=== PATIENT | female | born 1945 | race Caucasian/White ===

== ENCOUNTER 2019-03-08 12:00 | Inpatient (IN) | payer BC ==
[~2019-03-08] VITALS: Ht 152.4 cm; Wt 70.8 kg
[2019-08-03] MEDS ORDERED: AMLO-307 PO (10:21)
[2019-08-03] MEDS ORDERED: ALEN70TA13 PO (10:21)
[2019-08-03] MEDS ORDERED: TRAM50TA2 PO (10:21)
[2019-08-03] MEDS ORDERED: ACET-2119 PO (11:03)
[2019-08-15] MEDS ORDERED: ASPI-611 PO (11:38)
[2019-08-15] MEDS ORDERED: CHOL50004 PO (11:38)
[2019-08-15] MEDS ORDERED: MULT-933 PO (11:38)
[2019-08-15] MEDS ORDERED: CICL90CR11 TOP (11:38)
[2019-08-16] VITALS (26 sets, daily range): BP systolic 88–163; BP diastolic 43–93
[2019-08-16] MEDS ORDERED: ringers solution, lacted 1,000 ML IV SCH ×2 (05:00→09:02)
[2019-08-16] MEDS ORDERED: vancomycin 1,500 MG in NS 500ml IV soln IV ONE (05:30)
[2019-08-16] MEDS ORDERED: famotidine 20mg tablet PO ONE (05:30)
[2019-08-16] MEDS ORDERED: cefazolin/dext.iso 2gm/100ml 100 ML IV ONE (05:30)
[2019-08-16] MEDS ORDERED: tranexamic acid inj. 700 MG in normal saline 100ml IV soln 100 ML IV ONE ×5 (05:30→13:00)
[2019-08-16] MEDS ORDERED: LIDOcaine 1% (10mg/ml) 2ml vial ONE (05:59)
[2019-08-16] MEDS ORDERED: ketorolac trometh. 30mg/ml inj. ONE (06:40)
[2019-08-16] MEDS ORDERED: ROPIVAcaine 0.5% (5mg/ml) 30ml vial ONE ×2 (06:40→07:07)
[2019-08-16 06:41] LABS: BASOPHILS # (AUTO) 0.1 X10'3 (0-0.2); BASOPHILS % (AUTO) 0.7 % (0-1); EOSINOPHILS % (AUTO) 0.4 % (0-6); HEMATOCRIT 36.4 % (35.0-45.0); HEMOGLOBIN 12.2 g/dl (12.0-16.0); LYMPHOCYTES # (AUTO) 1.3 X10'3 (1.1-4.8); LYMPHOCYTES % (AUTO) 16.2 % (21-51); MEAN CORPUSCULAR HEMOGLOBIN 28.9 PG (27.0-31.0); MEAN CORPUSCULAR HGB CONC 33.6 g/dL (33.0-36.5); MEAN CORPUSCULAR VOLUME 86.2 FL (78-98); MEAN PLATELET VOLUME 6.9 FL (7.4-10.4); NEUTROPHILS # (AUTO) 5.4 X10'3 (1.8-7.7); NEUTROPHILS % (AUTO) 69.7 % (42-75); PLATELET COUNT 213 X10'3 (140-440); RED BLOOD COUNT 4.22 X10'6 (4.20-5.60); WHITE BLOOD COUNT 7.8 X10'3 (4.5-11.0)
[2019-08-16 06:53] LABS: ALANINE AMINOTRANSFERASE 26 U/L (12-78); ALBUMIN 3.8 G/DL (3.4-5.0); ALBUMIN/GLOBULIN RATIO 1.1 (1.1-1.5); ALKALINE PHOSPHATASE 56 IU/L (46-116); ANION GAP 12 (8-16); ASPARTATE AMINO TRANSFERASE 38 U/L (10-37); BILIRUBIN,TOTAL 0.6 MG/DL (0.1-1.0); BLOOD UREA NITROGEN 14 MG/DL (7-18); BUN/CREATININE RATIO 17.1 (6.6-38.0); CALCIUM 9.2 MG/DL (8.5-10.1); CHLORIDE 101 MMOL/L (99-107); CREATININE 0.82 MG/DL (0.40-0.90); GLUCOSE 110 MG/DL (70-104); POTASSIUM 3.3 MMOL/L (3.5-5.1); SODIUM 138 MMOL/L (135-145); TOTAL CARBON DIOXIDE 24.9 MMOL/L (24-32); TOTAL PROTEIN 7.2 G/DL (6.4-8.2); eGFR 68 ML/MIN
[2019-08-16] MEDS ORDERED: fentaNYL/PF 50MCG/1 ML 2ML syringe ONE (07:05)
[2019-08-16] MEDS ORDERED: MIDAZolam 5mg/5ml vial ONE (07:05)
[2019-08-16] MEDS ORDERED: propofol inj 20 ML IV ONE (07:07)
[2019-08-16] MEDS ORDERED: sevoflurane 250ml liquid IH ONE (07:08)
[2019-08-16] MEDS ORDERED: LIDOcaine 1%/PF 5ML 10 MG/ML VIAL ONE (07:08)
[2019-08-16] MEDS ORDERED: ePHEDrine 50MG/ML INJ. ONE (08:16)
[2019-08-16] MEDS ORDERED: dexamethasone sod phosphate 4mg/ml inj. ONE (08:18)
[2019-08-16] MEDS ORDERED: ROPIVAcaine 0.2%/PF PUMP/bolus 550 ML INTERSCALE SCH (09:02)
[2019-08-16] MEDS ORDERED: ROPIVAcaine 0.2% (10 MG/5 ML) BOLUS INJECTION INTERSCALE PRN (09:05)
[2019-08-16] MEDS ORDERED: morphine 2 MG/ML inj. syringe IV PRN (09:05)
[2019-08-16] MEDS ORDERED: morphine 4 MG/ML inj SYRINge IV PRN (09:05)
[2019-08-16] MEDS ORDERED: proCHLORperazine 10 MG/2 ml inj IV PRN (09:05)
[2019-08-16] MEDS ORDERED: ondansetron/PF 4mg/2ml inj IV PRN ×2 (09:05→09:55)
[2019-08-16] MEDS ORDERED: meperidine/PF 25mg/ml syringe IV PRN ×3 (09:05)
--- NOTE | 2019-08-16 09:24 | NUR ---
Received from OR via BED, accompanied by Anesthesiologist DR OVIEDO and report given by Anesthesiologist. PT DROWSY, NO S/S OF DISTRESS OR DISCOMFORT, LEFT SHOULDER W/DRSG CDI, ICE PACK, SHOULDER WRAP, SLING. Addendum: 08/16/19 at 0946 by Kaylie Henson RN Amended: Links added. Addendum: 08/16/19 at 0947 by Kaylie Henson RN LATE NOTE: BLANKET WARMER APPLIED TO PT FOR TEMP OF 36.0
[2019-08-16] MEDS ORDERED: HYDROmorphone 1 mg/ml syringe IV PRN (09:55)
[2019-08-16] MEDS ORDERED: HYDROmorphone inj. 0.5 MG/0.5 ML DISP.SYRIN IV PRN (09:55)
[2019-08-16] MEDS ORDERED: bisacodyl 10mg suppository rectal RC PRN (09:55)
[2019-08-16] MEDS ORDERED: diphenhydrAMINE 25mg capsule PO PRN ×2 (09:55)
[2019-08-16] MEDS ORDERED: magnesium hydroxide 30ml (MOM) UD suspension PO PRN (09:55)
[2019-08-16] MEDS ORDERED: acetaminophen 325mg tablet PO PRN (09:55)
[2019-08-16] MEDS ORDERED: oxyCODONE IR 5mg (immed. release) tablet PO PRN ×2 (09:55)
[2019-08-16] MEDS ORDERED: non-formulary drug (Alendronate Sodium 1 TAB) PO SCH (10:05)
[2019-08-16] MEDS ORDERED: traMADol 50MG tablet PO PRN (10:05)
--- NOTE | 2019-08-16 12:04 | NUR ---
Report called to receiving nurse. Transferred via BED BY KAMILA 2 BAGS OF Belongings SENT W/PT TO ROOM 3019, CALLED CHARGE NURSE TO NOTIFY OF PTS ARRIVAL. Special Issues communicated to receiving nurse. YES. Addendum: 08/16/19 at 1218 by Kaylie Henson RN Amended: Links added.
[2019-08-16] MEDS: acetaminophen 325mg tablet PO SCH ×3 (16:05→23:08)
[2019-08-16] MEDS: ceFAZolin 1GM/D5W- ADD-VANTAGE 50 ML IV SCH ×2 (16:06→23:00)
[2019-08-16] MEDS: potassium cl 20mEq in 1/2 NS 1,000 ML IV SCH (16:29)
--- NOTE | 2019-08-16 18:05 | NUR ---
Patient in room PCU 3019. I have received report from DEMETRA Walker and had the opportunity to ask questions and assume patient care.
[2019-08-16] MEDS ORDERED: vancomycin/NS 1 GM ADD-VANTAGE 250 ML IV SCH (20:00)
[2019-08-16] MEDS ORDERED: sennosides 8.6mg tablet PO SCH (21:00)
[2019-08-17 02:00] VITALS: BP 116/48
[2019-08-17] MEDS: potassium cl 20mEq in 1/2 NS 1,000 ML IV SCH ×2 (03:37→09:53)
[2019-08-17 05:46] LABS: BASOPHILS % (AUTO) 0.3 % (0-1); EOSINOPHILS % (AUTO) 0 % (0-6); HEMATOCRIT 26.8 % (35.0-45.0); LYMPHOCYTES # (AUTO) 0.8 X10'3 (1.1-4.8); LYMPHOCYTES % (AUTO) 10.2 % (21-51); MEAN CORPUSCULAR HEMOGLOBIN 29.1 PG (27.0-31.0); MEAN CORPUSCULAR HGB CONC 33.7 g/dL (33.0-36.5); MEAN CORPUSCULAR VOLUME 86.4 FL (78-98); MEAN PLATELET VOLUME 7.2 FL (7.4-10.4); MONOCYTES # (AUTO) 1.4 X10'3 (0-0.9); MONOCYTES % (AUTO) 16.8 % (2-12); NEUTROPHILS % (AUTO) 72.7 % (42-75); PLATELET COUNT 159 X10'3 (140-440); RED BLOOD COUNT 3.11 X10'6 (4.20-5.60); WHITE BLOOD COUNT 8.2 X10'3 (4.5-11.0)
[2019-08-17 06:00] VITALS: BP 135/69
--- NOTE | 2019-08-17 06:24 | NUR ---
Problems reprioritized. Patient report given, questions answered & plan of care reviewed with DEMETRA Luong
[2019-08-17 06:25] LABS: ANION GAP 9 (8-16); CHLORIDE 104 MMOL/L (99-107); POTASSIUM 3.7 MMOL/L (3.5-5.1); SODIUM 138 MMOL/L (135-145); TOTAL CARBON DIOXIDE 24.8 MMOL/L (24-32)
[2019-08-17 07:01] LABS: TOTAL CELLS COUNTED 100
[2019-08-17 07:02] LABS: PLATELET ESTIMATE NORMAL
[2019-08-17] MEDS: acetaminophen 325mg tablet PO SCH ×2 (07:54→14:07)
[2019-08-17] MEDS ORDERED: atorvastatin 20mg tablet PO SCH (08:00)
[2019-08-17] MEDS ORDERED: amLODIPine 5mg tablet PO SCH (08:00)
[2019-08-17] MEDS ORDERED: aspirin 325mg tablet PO SCH (08:30)
[2019-08-17] MEDS ORDERED: ONQPUMP ADDCANAL (08:33)
[2019-08-17 11:00] VITALS: BP 100/45
--- NOTE | 2019-08-17 12:30 | NUR ---
Patient discharged, awaiting for patients ride home.
--- NOTE | 2019-08-17 17:04 | NUR ---
Patient stable for discharge, belongings gathered and sent home with patient. PIV removed, cannula intact.
[2019-08-18] MEDS ORDERED: acetaminophen 325mg tablet PO PRN (09:55)
== END 2019-08-17 17:02 | disposition home health service (06) | DRG 483 ==
LOC: UNDOADMIN 08-16 05:33 → PAS IN 08-16 05:33 → EDSTATUS 08-16 07:30 → PAS IN 08-16 09:53 → PCU 3S 08-16 12:00 → PAS IN 08-16 12:00
PROVIDERS: ADMIT Orthopaedic Surgery; ATTEND Orthopaedic Surgery
PROC: 3E0T3BZ Introduction of Anesthetic Agent into Peripheral Nerves and Plexi, Percutaneous Approach (ICD-10-PCS; 2019-08-16)
PROC: 0RRK00Z Replacement of Left Shoulder Joint with Reverse Ball and Socket Synthetic Substitute, Open Approach (ICD-10-PCS; principal; 2019-08-16 07:08)
DX: M19.012 Primary osteoarthritis, left shoulder (principal); D62 Acute posthemorrhagic anemia; E78.5 Hyperlipidemia, unspecified; I10 Essential (primary) hypertension; M06.9 Rheumatoid arthritis, unspecified; M81.0 Age-related osteoporosis without current pathological fracture; G89.29 Other chronic pain; M54.9 Dorsalgia, unspecified; Z79.899 Other long term (current) drug therapy
CPT/HCPCS: Z7506; Z7508; 36415; 80051; 80053; 82948; 85025; 87081; 87635; 97162; 97530; A4565; A4618; A7000; C1713; C1776; G0378; J0690; J1100; J1885; J2001; J2250; J2704; J2795; J3010; J3370; J3480; J7040; J7120

== ENCOUNTER 2021-01-08 05:25 | Inpatient (IN) | payer BC ==
[2021-01-02 15:14] LABS: BASOPHILS # (AUTO) 0.1 X10'3 (0-0.2); BASOPHILS % (AUTO) 1.3 % (0-1); EOSINOPHILS # (AUTO) 0.1 X10'3 (0-0.9); EOSINOPHILS % (AUTO) 2.7 % (0-6); LYMPHOCYTES # (AUTO) 1.4 X10'3 (1.1-4.8); LYMPHOCYTES % (AUTO) 30.3 % (21-51); MEAN CORPUSCULAR HEMOGLOBIN 29.1 PG (27.0-31.0); MEAN CORPUSCULAR HGB CONC 33.8 g/dL (33.0-36.5); MEAN CORPUSCULAR VOLUME 86.2 FL (78-98); MEAN PLATELET VOLUME 6.9 FL (7.4-10.4); MONOCYTES # (AUTO) 0.5 X10'3 (0-0.9); NEUTROPHILS # (AUTO) 2.6 X10'3 (1.8-7.7); NEUTROPHILS % (AUTO) 54.7 % (42-75); PRE OP HEMATOCRIT 35.5 % (35.0-45.0); PRE OP PLATELET COUNT 221 X10'3 (140-440); RED BLOOD COUNT 4.11 X10'6 (4.20-5.60); RED CELL DISTRIBUTION WIDTH 14.3 % (11.5-14.5)
[2021-01-02 15:27] LABS: ALBUMIN 4.2 G/DL (3.4-5.0); ALBUMIN/GLOBULIN RATIO 1.4 (1.1-1.5); ALKALINE PHOSPHATASE 65 IU/L (46-116); BLOOD UREA NITROGEN 16 MG/DL (7-18); BUN/CREATININE RATIO 20.3 (6.6-38.0); CHLORIDE 101 MMOL/L (99-107); CREATININE 0.79 MG/DL (0.40-0.90); PRE OP ALT 32 U/L (30-65); PRE OP ANION GAP 10 (8-16); PRE OP AST 29 U/L (10-37); PRE OP BILIRUB, TOTAL 0.5 MG/DL (0.0-1.0); PRE OP GLUCOSE 97 MG/DL (70-104); PRE OP POTASSIUM 3.7 MMOL/L (3.4-5.1); PRE OP SODIUM 139 MMOL/L (135-145); TOTAL CARBON DIOXIDE 27.7 MMOL/L (24-32); TOTAL PROTEIN 7.1 G/DL (6.4-8.2); eGFR 71 ML/MIN
[2021-01-08] VITALS (37 sets, daily range): BP systolic 89–151; BP diastolic 43–77
[~2021-01-08] VITALS: Ht 152.4 cm; Wt 65.3 kg
[~2021-01-08 05:25] MED LIST: ACET-2119 PO; AMLO-307 PO; ASPI-10 PO; ASPI-611 PO; BUPR-317 PO; DESV25TA PO; DICL1TAB56 PO; MULT-933 PO; OMEG-86 PO
[2021-01-08] MEDS ORDERED: cefazolin/dext.iso 2gm/100ml IV ONE (05:30)
[2021-01-08] MEDS ORDERED: famotidine 20mg tablet PO ONE (05:30)
[2021-01-08] MEDS ORDERED: tranexamic acid 650mg tablet PO ONE (05:30)
[2021-01-08] MEDS ORDERED: VANCOMYCIN INJ 1000 MG in NORMAL SALINE 250ml IV.SOLN IV ONE (05:30)
[2021-01-08] MEDS: ringers solution, lacted 1,000 ML IV SCH ×3 (06:16→15:29)
[2021-01-08] MEDS ORDERED: ROPIVAcaine 0.5% (5mg/ml) 30ml vial ONE ×2 (06:52→08:34)
[2021-01-08] MEDS ORDERED: ketorolac trometh. 30mg/ml inj. ONE (06:52)
[2021-01-08] MEDS ORDERED: midazolam 1 mg/ML 2ml injection ONE (07:13)
[2021-01-08] MEDS ORDERED: cloNIDine hcl/PF 100mcg/ml inj ONE (07:16)
[2021-01-08] MEDS ORDERED: fentaNYL /PF 50mcg/ml 5ml ampule ONE (07:18)
[2021-01-08] MEDS ORDERED: ketamine 50mg/5ml syringe ONE (08:15)
[2021-01-08] MEDS ORDERED: HYDROmorphone/PF 0.2 MG/ML SYRINGE IV PRN ×2 (08:30)
[2021-01-08] MEDS ORDERED: ringers solution, lacted 1,000 ML IV SCH (08:30)
[2021-01-08] MEDS ORDERED: morphine 2 MG/ML inj. syringe IV PRN (08:30)
[2021-01-08] MEDS ORDERED: ondansetron/PF 4mg/2ml inj IV PRN ×2 (08:30→09:35)
[2021-01-08] MEDS ORDERED: rocuronium 10mg/ml inj IV ONE (08:34)
[2021-01-08] MEDS ORDERED: LIDOcaine 1%/PF 5ML 10 MG/ML VIAL ONE (08:34)
[2021-01-08] MEDS ORDERED: propofol inj 20 ML IV ONE (08:34)
[2021-01-08] MEDS ORDERED: dexamethasone sod phosphate 4mg/ml inj. ONE (08:35)
[2021-01-08] MEDS ORDERED: neostigmine methylsulfate 1 MG/ML 10ml vial ONE (08:35)
[2021-01-08] MEDS ORDERED: ondansetron/PF 4mg/2ml inj ONE (08:35)
[2021-01-08] MEDS ORDERED: glycopyrrolate 0.2mg/ml inj ONE (08:35)
[2021-01-08] MEDS ORDERED: ePHEDrine 50MG/ML INJ. ONE (09:06)
[2021-01-08] MEDS ORDERED: acetaminophen 1,000mg/100ml IV 100 ML IV ONE (09:06)
--- NOTE | 2021-01-08 09:19 | NUR ---
Received from OR via BED IN STABLE CONDITION , accompanied by Anesthesiologist and LINING FINISHER report given by LINING FINISHER AND Anesthesiolgist. Addendum: 01/08/21 at 1015 by Sahara Stone RN Amended: Links added.
[2021-01-08] MEDS ORDERED: magnesium hydroxide 30ml (MOM) UD suspension PO PRN (09:35)
[2021-01-08] MEDS ORDERED: oxyCODONE IR 5mg (immed. release) tablet PO PRN ×2 (09:35)
[2021-01-08] MEDS: potassium cl 20mEq in 1/2 NS 1,000 ML IV SCH ×2 (09:35→17:13)
[2021-01-08] MEDS ORDERED: HYDROmorphone inj. 0.5 MG/0.5 ML DISP.SYRIN IV PRN (09:35)
[2021-01-08] MEDS ORDERED: bisacodyl 10mg suppository rectal RC PRN (09:35)
[2021-01-08] MEDS ORDERED: diphenhydrAMINE 25mg capsule PO PRN ×2 (09:35)
[2021-01-08] MEDS ORDERED: HYDROmorphone 1 mg/ml syringe IV PRN (09:35)
[2021-01-08] MEDS ORDERED: acetaminophen 325mg tablet PO PRN (09:35)
[2021-01-08] MEDS: acetaminophen 325mg tablet PO SCH ×3 (13:00→21:49)
[2021-01-08] MEDS ORDERED: acetaminophen 325mg tablet PO SCH (14:00)
[2021-01-08] MEDS: DICLOFENAC SODIUM PO SCH (14:00)
[2021-01-08] MEDS: MISOPROSTOL PO SCH (14:00)
--- NOTE | 2021-01-08 14:49 | NUR ---
PATIENT DISCHARGED FROM PACU IN STABLE CONDITION AFTER REPORT GIVEN TO THE NURSE TAKING OVER PATIENTS CARE. PATIENT TRANSFERRED TO ROOM 340A VIA BED WITH WELT RANDER X2. Addendum: 01/08/21 at 1502 by Shaara Stone RN Amended: Links added.
--- NOTE | 2021-01-08 14:49 | NUR ---
Patient in room . I have received report from Esthela RN and had the opportunity to ask questions and assume patient care.
[2021-01-08] MEDS: ceFAZolin/D5W- 1GM premix 50 ML IV SCH ×2 (17:11→23:55)
[2021-01-08] MEDS ORDERED: HYDROcodone/acetaminophen 5mg/325mg tablet PO PRN (17:40)
--- NOTE | 2021-01-08 19:00 | NUR ---
Problems reprioritized. Patient report given, questions answered & plan of care reviewed with Kaz MCCRARY.
[2021-01-08] MEDS: multivitamins, therapeutics tablet PO SCH (19:47)
[2021-01-08] MEDS ORDERED: vancomycin/NS 1 GM ADD-VANTAGE 250 ML IV SCH (20:00)
[2021-01-08] MEDS ORDERED: ATORVASTATIN PO SCH (21:00)
[2021-01-08] MEDS ORDERED: AMLODIPINE PO SCH (21:00)
[2021-01-08] MEDS: sennosides 8.6mg tablet PO SCH (21:00)
[2021-01-09] VITALS: BP 118/71
[2021-01-09] MEDS: sennosides 8.6mg tablet PO SCH (02:23)
[2021-01-09] MEDS: potassium cl 20mEq in 1/2 NS 1,000 ML IV SCH ×2 (02:25→09:35)
[2021-01-09] MEDS: HYDROcodone/acetaminophen 10/325mg tab PO PRN ×2 (05:53→13:16)
[2021-01-09 06:09] LABS: BASOPHILS % (AUTO) 0.7 % (0-1); EOSINOPHILS # (AUTO) 0.1 X10'3 (0-0.9); EOSINOPHILS % (AUTO) 0.8 % (0-6); HEMATOCRIT 30.4 % (35.0-45.0); HEMOGLOBIN 10.2 g/dl (12.0-16.0); LYMPHOCYTES # (AUTO) 1.2 X10'3 (1.1-4.8); LYMPHOCYTES % (AUTO) 18.2 % (21-51); MEAN CORPUSCULAR HEMOGLOBIN 29.3 PG (27.0-31.0); MEAN CORPUSCULAR HGB CONC 33.5 g/dL (33.0-36.5); MEAN CORPUSCULAR VOLUME 87.3 FL (78-98); MEAN PLATELET VOLUME 7.3 FL (7.4-10.4); MONOCYTES % (AUTO) 15.3 % (2-12); NEUTROPHILS # (AUTO) 4.1 X10'3 (1.8-7.7); PLATELET COUNT 168 X10'3 (140-440); RED BLOOD COUNT 3.49 X10'6 (4.20-5.60); RED CELL DISTRIBUTION WIDTH 14.4 % (11.5-14.5); WHITE BLOOD COUNT 6.4 X10'3 (4.5-11.0)
--- NOTE | 2021-01-09 06:13 | NUR ---
Patient in room [facility] 340. I have received report from Kaz mandel and had the opportunity to ask questions and assume patient care.
[2021-01-09 06:25] LABS: ANION GAP 8 (8-16); CHLORIDE 101 MMOL/L (99-107); POTASSIUM 3.9 MMOL/L (3.5-5.1); SODIUM 137 MMOL/L (135-145); TOTAL CARBON DIOXIDE 28.3 MMOL/L (24-32)
[2021-01-09 07:06] LABS: TOTAL CELLS COUNTED 100
[2021-01-09 07:10] LABS: PLATELET ESTIMATE NORMAL
[2021-01-09] MEDS: multivitamins, therapeutics tablet PO SCH (07:57)
[2021-01-09] MEDS: acetaminophen 325mg tablet PO SCH ×2 (07:58→13:17)
[2021-01-09] MEDS ORDERED: OMEGA-3/DHA/EPA/FISH OIL 1 EACH CAPSULE.DR PO SCH (08:00)
[2021-01-09] MEDS ORDERED: atorvastatin 20mg tablet PO SCH (08:00)
[2021-01-09] MEDS ORDERED: buPROPion SR 150mg tablet PO SCH (08:00)
[2021-01-09] MEDS ORDERED: DESVENLAFAXINE SUCCINATE 25 MG PO SCH (08:00)
[2021-01-09] MEDS ORDERED: amLODIPine 5mg tablet PO SCH (08:00)
--- NOTE | 2021-01-09 08:08 | NUR ---
feroz pelletier, was not due yet. returned to bin on [email or web address]
[2021-01-09] MEDS ORDERED: aspirin 325mg tablet PO SCH (08:30)
[2021-01-09 08:31] VITALS: BP 122/43
--- NOTE | 2021-01-09 10:05 | NUR ---
UNABLE TO GET A HOLD OF PTS ORTHO DR TO DISCONTINUE PTS OWN HOME MEDS, PT DOES NOT HAVE A HOSPITALIST.
[2021-01-09 11:00] VITALS: BP 108/82
[2021-01-09] MEDS ORDERED: HYDR-3972 PO (13:12)
--- NOTE | 2021-01-09 13:36 | NUR ---
Joint Surgery Consult: Pt s/p R knee surgery this admit. Pt seen by CHRISTINA for written/verbal high protein ed w/ RD contact information provided. CHRISTINA encouraged pt to contact dietitian's office if further questions/concerns. Addendum: 01/09/21 at [address] Amended: Links added.
[2021-01-09] MEDS: DICLOFENAC SODIUM PO SCH (14:00)
[2021-01-09] MEDS: MISOPROSTOL PO SCH (14:00)
--- NOTE | 2021-01-09 14:37 | NUR ---
Medication note. Pt is being discharged home and said will take home medication when home. did not bring with her.
--- NOTE | 2021-01-09 15:27 | NUR ---
pt is being picked up by family, all discharged info gone over and no questions, dc of iv intact, wheeled down in wheel chair with all belongings and left in private vehicle.
[2021-01-10] MEDS ORDERED: acetaminophen 325mg tablet PO PRN (09:35)
[2021-01-18] MEDS ORDERED: sevoflurane 250ml liquid IH ONE (07:14)
== END 2021-01-09 15:20 | disposition home or self-care (01) | DRG 470 ==
LOC: PAS 05:25 → SUR 3N 09:36
PROVIDERS: ADMIT Orthopaedic Surgery; ATTEND Orthopaedic Surgery
PROC: 8E0YXBZ Computer Assisted Procedure of Lower Extremity (ICD-10-PCS; 2021-01-08)
PROC: 8E0Y0CZ Robotic Assisted Procedure of Lower Extremity, Open Approach (ICD-10-PCS; 2021-01-08)
PROC: 3E0T3BZ Introduction of Anesthetic Agent into Peripheral Nerves and Plexi, Percutaneous Approach (ICD-10-PCS; 2021-01-08)
PROC: 3E0T33Z Introduction of Anti-inflammatory into Peripheral Nerves and Plexi, Percutaneous Approach (ICD-10-PCS; 2021-01-08)
PROC: 0SRC0J9 Replacement of Right Knee Joint with Synthetic Substitute, Cemented, Open Approach (ICD-10-PCS; principal; 2021-01-08 07:14)
DX: M17.0 Bilateral primary osteoarthritis of knee (principal); I10 Essential (primary) hypertension; Z96.612 Presence of left artificial shoulder joint; F41.9 Anxiety disorder, unspecified; F32.A Depression, unspecified; Z88.2 Allergy status to sulfonamides
CPT/HCPCS: Z7506; Z7508; 36415; 80051; 80053; 82948; 85007; 85025; 87081; 97110; 97162; 97530; A4215; A7000; C1713; C1776; G0378; J0131; J0690; J0735; J1100; J1885; J2250; J2405; J2704; J2710; J2795; J3010; J3370; J3480; J3490; J7120; U0003; U0005

== ENCOUNTER 2022-08-12 08:09 | Inpatient (IN) | payer BC ==
[2022-08-07 12:29] LABS: BASOPHILS # (AUTO) 0.1 X10'3 (0-0.2); BASOPHILS % (AUTO) 1.2 % (0-1); EOSINOPHILS # (AUTO) 0.1 X10'3 (0-0.9); EOSINOPHILS % (AUTO) 2.7 % (0-6); LYMPHOCYTES # (AUTO) 0.9 X10'3 (1.1-4.8); LYMPHOCYTES % (AUTO) 20.7 % (21-51); MEAN CORPUSCULAR HEMOGLOBIN 28.4 PG (27.0-31.0); MEAN CORPUSCULAR HGB CONC 32.8 g/dL (33.0-36.5); MEAN CORPUSCULAR VOLUME 86.6 FL (78-98); MEAN PLATELET VOLUME 6.6 FL (7.4-10.4); MONOCYTES # (AUTO) 0.5 X10'3 (0-0.9); MONOCYTES % (AUTO) 11.7 % (2-12); NEUTROPHILS # (AUTO) 2.8 X10'3 (1.8-7.7); NEUTROPHILS % (AUTO) 63.7 % (42-75); PRE OP HEMATOCRIT 35.9 % (35.0-45.0); PRE OP HEMOGLOBIN 11.8 g/dL (12.0-16.0); PRE OP PLATELET COUNT 196 X10'3 (140-440); RED BLOOD COUNT 4.14 X10'6 (4.20-5.60); RED CELL DISTRIBUTION WIDTH 14.8 % (11.5-14.5)
[2022-08-07 12:49] LABS: ALBUMIN/GLOBULIN RATIO 1.4 (1.1-1.5); ALKALINE PHOSPHATASE 73 IU/L (46-116); BLOOD UREA NITROGEN 15 MG/DL (7-18); BUN/CREATININE RATIO 19.5 (10.0-20.0); CALCIUM 8.8 MG/DL (8.5-10.1); CHLORIDE 100 MMOL/L (99-107); CREATININE 0.77 MG/DL (0.40-0.90); PRE OP ALT 28 U/L (30-65); PRE OP ANION GAP 9 (8-16); PRE OP AST 35 U/L (10-37); PRE OP BILIRUB, TOTAL 0.5 MG/DL (0.0-1.0); PRE OP GLUCOSE 106 MG/DL (70-104); PRE OP SODIUM 137 MMOL/L (135-145); TOTAL PROTEIN 6.9 G/DL (6.4-8.2); eGFR 72 ML/MIN
[2022-08-12] VITALS (15 sets, daily range): BP systolic 101–159; BP diastolic 40–79
[~2022-08-12] VITALS: Ht 152.4 cm; Wt 62.6 kg
[~2022-08-12 08:09] MED LIST changes: -ASPI-611 PO; +CHOL125C7 PO; +DICL1TAB PO; -DICL1TAB56 PO; +LUMA42CA PO; +METH5TAB4 PO; -MULT-933 PO; -OMEG-86 PO; +PRAS25CA PO; +cefazolin 2gm/D5W 100mL 100 ML IV ONE; +famotidine 20mg tablet PO ONE; +ringers solution, lacted 1,000 ML IV SCH; +tranexamic acid 650mg tablet PO ONE; +vancomycin/NS 1 GM in NS 250 ML IV ONE
[2022-08-12] MEDS ORDERED: fentaNYL/PF 50MCG/1 ML 2ML syringe ONE (10:46)
[2022-08-12] MEDS ORDERED: ROPIVAcaine 0.5% (5mg/ml) 30ml vial ONE ×2 (10:47→12:30)
[2022-08-12] MEDS ORDERED: midazolam 1 mg/ML 2ml injection ONE (10:50)
--- NOTE | 2022-08-12 11:00 | NUR ---
PT STATES SHE HAS SOME DECREASED SENSATION ON LEFT LEG AND BILAT NUMBNESS TO BOTH LE'S. PEDAL/TIBIAL PULSES DOPPLER QUALITY ON LEFT, RIGHT PEDAL/TIBIAL PALPABLE PULSES. PT STATES SHE DID NOT WATCH THE DVD OR READ ABOUT THE TOTAL JOINT REPLACEMENT SHE HAS HAS 3 TOTAL JOINT REPLACEMENT SXS. SHE STATES SHE BATHED AND USED THE BACTROBAN OINTMENT FOR THE LAST 5 DAYS PER TOTAL JOINT REPLACEMENT RECOMMENDATIONS. Addendum: 08/12/22 at 1252 by Kaylie Henson RN Amended: Links added.
[2022-08-12] MEDS ORDERED: rocuronium 10mg/ml inj IV ONE (11:58)
[2022-08-12] MEDS ORDERED: sevoflurane 250ml liquid IH ONE (11:58)
[2022-08-12] MEDS ORDERED: proCHLORperazine 10 MG/2 ml inj IV PRN (12:25)
[2022-08-12] MEDS ORDERED: hydrALAZINE 20mg/ml inj. IV PRN (12:25)
[2022-08-12] MEDS ORDERED: HYDROmorphone/PF 0.2 MG/ML SYRINGE IV PRN ×2 (12:25)
[2022-08-12] MEDS ORDERED: meperidine/PF 25mg/ml syringe IV PRN (12:25)
[2022-08-12] MEDS ORDERED: labetalol 20mg/4ml (5mg/ml) syringe IV PRN (12:25)
[2022-08-12] MEDS ORDERED: morphine 4 MG/ML inj SYRINge IV PRN (12:25)
[2022-08-12] MEDS ORDERED: morphine 2 MG/ML inj. syringe IV PRN (12:25)
[2022-08-12] MEDS ORDERED: ondansetron/PF 4mg/2ml inj IV PRN ×2 (12:25→14:35)
[2022-08-12] MEDS ORDERED: ringers solution, lacted 1,000 ML IV SCH (12:25)
[2022-08-12] MEDS ORDERED: dexamethasone sod phosphate 4mg/ml inj. ONE (12:30)
[2022-08-12] MEDS ORDERED: propofol inj 20 ML IV ONE (12:30)
[2022-08-12] MEDS ORDERED: 0.9 % SODIUM CHLORIDE 10 ML VIAL ONE (12:30)
[2022-08-12] MEDS ORDERED: LIDOcaine 2% (20mg/ml) 5ml vial ONE (12:30)
[2022-08-12] MEDS ORDERED: ondansetron/PF 4mg/2ml inj ONE (12:30)
[2022-08-12] MEDS ORDERED: neostigmine methylsulfate 1 MG/ML 10ml vial ONE (14:18)
[2022-08-12] MEDS ORDERED: glycopyrrolate 0.2mg/ml inj ONE (14:19)
--- NOTE | 2022-08-12 14:29 | NUR ---
Received from OR via HOSPITAL BED, accompanied by Anesthesiologist DR. MOSQUEDA and report given by Anesthesiolgist. RIGHT FOREARM 20G PIV WITH LR RUNNING PER ORDER. VSS. 10L MASK SATS 100%. SONOROUS BREATHING. NONVERBAL 0/10 PAIN. LEFT KNEE DRESSING CDI, WITH SLEEVE, SAND PACK. URINARY CATHETER DRAINING CLEAR, STRAW YELLOW URINE.
[2022-08-12] MEDS ORDERED: acetaminophen 325mg tablet PO PRN (14:35)
[2022-08-12] MEDS ORDERED: diphenhydrAMINE 25mg capsule PO PRN ×2 (14:35)
[2022-08-12] MEDS ORDERED: DICLOFENAC SODIUM PO PRN ×2 (14:35→15:15)
[2022-08-12] MEDS ORDERED: [UNRECOGNIZED DRUG - OTHER] PO PRN ×2 (14:35→15:15)
[2022-08-12] MEDS ORDERED: naloxone 0.4 mg/ml inj IV PRN (14:35)
[2022-08-12] MEDS ORDERED: bisacodyl 10mg suppository rectal RC PRN (14:35)
[2022-08-12] MEDS ORDERED: HYDROmorphone inj. 0.5 MG/0.5 ML DISP.SYRIN IV PRN (14:35)
[2022-08-12] MEDS ORDERED: oxyCODONE IR 5mg (immed. release) tablet PO PRN ×2 (14:35)
[2022-08-12] MEDS ORDERED: magnesium hydroxide 30ml (MOM) UD suspension PO PRN (14:35)
[2022-08-12] MEDS ORDERED: HYDROmorphone 1 mg/ml syringe IV PRN (14:35)
[2022-08-12] MEDS ORDERED: MISOPROSTOL PO PRN ×2 (14:35→15:15)
--- NOTE | 2022-08-12 15:09 | NUR ---
REPORT GIVEN AND ALL QUESTIONS ANSWERED WITH MALLORY. PATIENT TRANSFERRED TO [facility] 4011A. LABELED BELONGINGS PRESENT AND DELIVERED TO ROOM. RN PRESENT ALL CRITERIA FOR TRANSFER TO THE FLOOR HAS BEEN ACHIEVED. VSS. PAIN AT A TOLERABLE LEVEL. BED LOW, CALL LIGHT PRESENT AND 2 RAILS DOWN. RN AWARE THAT PATIENT HAS ARRIVED. TO ACCEPT CARE OF PATIENT. LEFT KNEE DRESSING CDI, REMOVED SAND PACK PER PATIENT REQUEST. PATIENT FAMILY AT BEDSIDE.
[2022-08-12] MEDS: ceFAZolin/D5W- 1GM premix 50 ML IV SCH (16:55)
[2022-08-12] MEDS: potassium cl 20mEq in 1/2 NS 1,000 ML IV SCH ×2 (16:56→22:35)
[2022-08-12] MEDS: acetaminophen 325mg tablet PO SCH ×3 (17:00→21:05)
--- NOTE | 2022-08-12 18:25 | NUR ---
Patient in room ORTHO 4011. I have received report from DEMETRA Reno and had the opportunity to ask questions and assume patient care. Patient sitting up in bed eating dinner, visitor at the bedside. I will continue to monitor.
[2022-08-12] MEDS ORDERED: vancomycin/NS 1 GM ADD-VANTAGE 250 ML IV SCH ×2 (20:00)
[2022-08-12] MEDS ORDERED: LUMATEPERONE TOSYLATE PO SCH (21:00)
[2022-08-12] MEDS: sennosides 8.6mg tablet PO SCH (21:02)
[2022-08-12] MEDS: amLODIPine 5mg tablet PO SCH (21:04)
[2022-08-12] MEDS: atorvastatin 20mg tablet PO SCH (21:04)
[2022-08-12] MEDS: LUMATEPERONE TOSYLATE 42 MG PO SCH (21:06)
[2022-08-13] MEDS: HYDROcodone/acetaminophen 10/325mg tab PO PRN ×5 (00:23→20:30)
[2022-08-13] MEDS: ceFAZolin/D5W- 1GM premix 50 ML IV SCH (00:41)
[2022-08-13 02:00] VITALS: BP 112/62
[2022-08-13] MEDS: acetaminophen 325mg tablet PO SCH ×6 (02:00→09:14)
[2022-08-13 06:00] VITALS: BP_SYST 101; BP_SYST 112; BP_DIAS 40; BP_DIAS 50
[2022-08-13] MEDS: potassium cl 20mEq in 1/2 NS 1,000 ML IV SCH ×2 (06:35→09:13)
--- NOTE | 2022-08-13 06:38 | NUR ---
Problems reprioritized. Patient report given, questions answered & plan of care reviewed with DEMETRA Parikh.
[2022-08-13] MEDS: methylphenidate 5mg tablet PO SCH (07:10)
[2022-08-13] MEDS: cholecalciferol (vitamin D3) 1,000 unit (25mcg) tablet PO SCH (07:12)
[2022-08-13] MEDS: venlafaxine 25mg tablet PO SCH ×3 (07:19→20:31)
[2022-08-13] MEDS: aspirin 325mg tablet PO SCH (07:26)
[2022-08-13] MEDS: buproprion 150mg XL (24-hour) tablet PO SCH (07:30)
[2022-08-13] MEDS ORDERED: CHOLECALCIFEROL PO SCH (08:00)
[2022-08-13] MEDS ORDERED: DHEA 25mg tablet PO SCH ×2 (08:00)
[2022-08-13] MEDS ORDERED: DESVENLAFAXINE SUCCINATE PO SCH (08:00)
[2022-08-13] MEDS ORDERED: aspirin 325mg tablet PO SCH (08:00)
[2022-08-13] MEDS ORDERED: saliva stimulant agent 45ml spray MM PRN (11:25)
--- NOTE | 2022-08-13 12:14 | NUR ---
Problems reprioritized. Patient report given, questions answered & plan of care reviewed with j carlos mandel.
[2022-08-13 12:30] VITALS: BP 125/50
--- NOTE | 2022-08-13 12:38 | NUR ---
Patient in room ORTHO 4011. I have received report from DEMETRA Mari and had the opportunity to ask questions and assume patient care.
--- NOTE | 2022-08-13 13:23 | NUR ---
Joint surgery consult: Pt admit s/p L knee surgery this admit per EMR. Pt seen by CHRISTINA for written/verbal high protein diet ed w/ RD contact information provided. Pt reports drinks Ensure Max at home. RD encouraged pt to contact dietitian's office if further nutrition questions/concerns. Addendum: 08/13/22 at [address] Amended: Links added.
[2022-08-13 13:50] LABS: BASOPHILS % (AUTO) 0.6 % (0-1); EOSINOPHILS # (AUTO) 0.1 X10'3 (0-0.9); EOSINOPHILS % (AUTO) 0.9 % (0-6); HEMOGLOBIN 9.4 g/dl (12.0-16.0); LYMPHOCYTES # (AUTO) 1.1 X10'3 (1.1-4.8); LYMPHOCYTES % (AUTO) 15.7 % (21-51); MEAN CORPUSCULAR HGB CONC 33.5 g/dL (33.0-36.5); MEAN CORPUSCULAR VOLUME 86.3 FL (78-98); MEAN PLATELET VOLUME 6.9 FL (7.4-10.4); NEUTROPHILS # (AUTO) 4.9 X10'3 (1.8-7.7); NEUTROPHILS % (AUTO) 68.8 % (42-75); PLATELET COUNT 167 X10'3 (140-440); RED BLOOD COUNT 3.24 X10'6 (4.20-5.60); RED CELL DISTRIBUTION WIDTH 14.5 % (11.5-14.5)
[2022-08-13 14:05] LABS: ALANINE AMINOTRANSFERASE 22 U/L (12-78); ALBUMIN 3.5 G/DL (3.4-5.0); ALBUMIN/GLOBULIN RATIO 1.3 (1.1-1.5); ALKALINE PHOSPHATASE 56 IU/L (46-116); ANION GAP 8 (8-16); ASPARTATE AMINO TRANSFERASE 34 U/L (10-37); BILIRUBIN,TOTAL 0.4 MG/DL (0.1-1.0); BLOOD UREA NITROGEN 19 MG/DL (7-18); BUN/CREATININE RATIO 19.2 (10.0-20.0); CALCIUM 8.3 MG/DL (8.5-10.1); CHLORIDE 92 MMOL/L (99-107); CREATININE 0.99 MG/DL (0.40-0.90); GLUCOSE 124 MG/DL (70-104); POTASSIUM 3.7 MMOL/L (3.5-5.1); SODIUM 126 MMOL/L (135-145); TOTAL CARBON DIOXIDE 26.5 MMOL/L (24-32); TOTAL PROTEIN 6.1 G/DL (6.4-8.2); eGFR 54 ML/MIN
--- NOTE | 2022-08-13 14:57 | NUR ---
Charting by Doris LEON reviewed by Prince Horn RN
--- NOTE | 2022-08-13 16:07 | NUR ---
Patient c/o cramping pain to left upper thigh to left calf. Left knee surgical site edematous. Left calf does not appear larger size than right side. Left pedal pulse on palpation weaker. Barbra Starkey notified.
--- NOTE | 2022-08-13 16:37 | NUR ---
Patient now states pain to left leg "better now."
[2022-08-13 18:00] VITALS: BP 131/59
--- NOTE | 2022-08-13 18:30 | NUR ---
Problems reprioritized. Patient report given, questions answered & plan of care reviewed with DEMETRA Sheldon.
--- NOTE | 2022-08-13 18:57 | NUR ---
Patient in room ORTHO 4011. I have received report from TURNER MCCRARY and had the opportunity to ask questions and assume patient care.
[2022-08-13] MEDS: atorvastatin 20mg tablet PO SCH (20:30)
[2022-08-13] MEDS: sennosides 8.6mg tablet PO SCH (20:31)
[2022-08-13] MEDS: amLODIPine 5mg tablet PO SCH (20:31)
[2022-08-13] MEDS: LUMATEPERONE TOSYLATE 42 MG PO SCH (20:31)
[2022-08-13 22:00] VITALS: BP 132/51
[2022-08-14] MEDS: HYDROcodone/acetaminophen 10/325mg tab PO PRN ×2 (01:49→05:50)
[2022-08-14] MEDS: acetaminophen 325mg tablet PO SCH ×3 (03:08→14:00)
[2022-08-14 06:00] VITALS: BP 129/48
[2022-08-14 06:11] LABS: BASOPHILS % (AUTO) 0.5 % (0-1); EOSINOPHILS # (AUTO) 0.1 X10'3 (0-0.9); HEMATOCRIT 26.6 % (35.0-45.0); HEMOGLOBIN 8.8 g/dl (12.0-16.0); LYMPHOCYTES # (AUTO) 0.9 X10'3 (1.1-4.8); LYMPHOCYTES % (AUTO) 17.3 % (21-51); MEAN CORPUSCULAR HEMOGLOBIN 28.6 PG (27.0-31.0); MEAN CORPUSCULAR HGB CONC 33.3 g/dL (33.0-36.5); MEAN PLATELET VOLUME 7.2 FL (7.4-10.4); MONOCYTES % (AUTO) 19.2 % (2-12); NEUTROPHILS # (AUTO) 3.1 X10'3 (1.8-7.7); PLATELET COUNT 138 X10'3 (140-440); RED BLOOD COUNT 3.09 X10'6 (4.20-5.60); RED CELL DISTRIBUTION WIDTH 14.1 % (11.5-14.5); WHITE BLOOD COUNT 5.2 X10'3 (4.5-11.0)
[2022-08-14 06:14] LABS: ALANINE AMINOTRANSFERASE 21 U/L (12-78); ALBUMIN 3.1 G/DL (3.4-5.0); ALBUMIN/GLOBULIN RATIO 1.2 (1.1-1.5); ALKALINE PHOSPHATASE 50 IU/L (46-116); ANION GAP 8 (8-16); ASPARTATE AMINO TRANSFERASE 34 U/L (10-37); BILIRUBIN,TOTAL 0.5 MG/DL (0.1-1.0); BLOOD UREA NITROGEN 16 MG/DL (7-18); BUN/CREATININE RATIO 21.1 (10.0-20.0); CALCIUM 8.6 MG/DL (8.5-10.1); CHLORIDE 97 MMOL/L (99-107); CREATININE 0.76 MG/DL (0.40-0.90); GLUCOSE 114 MG/DL (70-104); POTASSIUM 4.4 MMOL/L (3.5-5.1); SODIUM 132 MMOL/L (135-145); TOTAL CARBON DIOXIDE 27.2 MMOL/L (24-32); TOTAL PROTEIN 5.7 G/DL (6.4-8.2); eGFR 73 ML/MIN
--- NOTE | 2022-08-14 06:24 | NUR ---
Problems reprioritized. Patient report given, questions answered & plan of care reviewed with MEREDITH BLANCHARD.
--- NOTE | 2022-08-14 06:34 | NUR ---
Patient in room ORTHO 4011. I have received report from marleny mandel and had the opportunity to ask questions and assume patient care.
[2022-08-14 07:01] LABS: PLATELET ESTIMATE DECREASED; TOTAL CELLS COUNTED 100
[2022-08-14] MEDS: buproprion 150mg XL (24-hour) tablet PO SCH (07:44)
[2022-08-14] MEDS: aspirin 325mg tablet PO SCH (07:44)
[2022-08-14] MEDS: cholecalciferol (vitamin D3) 1,000 unit (25mcg) tablet PO SCH (07:45)
[2022-08-14] MEDS: venlafaxine 25mg tablet PO SCH ×2 (07:45→13:00)
[2022-08-14] MEDS: methylphenidate 5mg tablet PO SCH (07:46)
[2022-08-14 10:00] VITALS: BP 129/53
--- NOTE | 2022-08-14 13:27 | NUR ---
SHRIMP TRAWLER documentation: I have reviewed and agree with all interventions, assessments performed and documented by Candace Arnold LVN .
[2022-08-14] MEDS ORDERED: acetaminophen 325mg tablet PO PRN (14:35)
--- NOTE | 2022-08-14 15:05 | NUR ---
Pt DC to home accompanied by caregiver via private vehicle. Pt and caregiver both verbally expressing understanding of all dc instructions provided. Pt informed this nurse she had initially refused pain medication from surgeon preop and was now hoping to get a prescription called in, MAYCOL Starkey contacted regarding this request. Pt informed this nurse of followup appointments scheduled before operation. All belongings and medications in pharmacy returned to pt.
[2022-08-14] MEDS ORDERED: HYDR-3973 PO (15:52)
== END 2022-08-14 15:15 | disposition home health service (06) | DRG 470 ==
LOC: PAS 08:09 → ORTHO 4S 14:38 → PAS 15:09
PROVIDERS: ADMIT Orthopaedic Surgery; ATTEND Orthopaedic Surgery
PROC: 8E0YXBZ Computer Assisted Procedure of Lower Extremity (ICD-10-PCS; 2022-08-12)
PROC: 8E0Y0CZ Robotic Assisted Procedure of Lower Extremity, Open Approach (ICD-10-PCS; 2022-08-12)
PROC: 0SRD0J9 Replacement of Left Knee Joint with Synthetic Substitute, Cemented, Open Approach (ICD-10-PCS; principal; 2022-08-12 11:58)
DX: M17.12 Unilateral primary osteoarthritis, left knee (principal); M21.162 Varus deformity, not elsewhere classified, left knee; Z79.899 Other long term (current) drug therapy; Z79.82 Long term (current) use of aspirin
CPT/HCPCS: Z7506; Z7508; 36415; 80053; 82948; 85007; 85025; 87081; 93005; 93971; 97110; 97116; 97161; 97530; A4215; A7000; C1713; C1758; C1776; G0378; J0690; J1100; J1170; J2250; J2405; J2704; J2710; J2795; J3010; J3370; J3480; J3490; J7120